=== PATIENT | male | born 1985 | race Caucasian/White ===

== ENCOUNTER 2017-09-22 12:49 | Emergency (ER) | payer OTHER ==
[2017-09-22 12:59] VITALS: BP 118/83
[2017-09-22] MEDS ORDERED: IPRATROPIUM/ALBUTEROL 3 ML NEB INH STA (13:51)
[2017-09-22] MEDS ORDERED: predniSONE 20 MG TABLET PO STA (13:51)
[2017-09-22] MEDS ORDERED: DOXYCYCLINE 100 MG TABLET PO STA (13:51)
--- NOTE | 2017-09-22 13:54 | ED Physician Documentation ---
PD HPI DYSPNEA - Stated complaint Stated Complaint: DIFF BREATHING/COLDS - Chief complaint Chief Complaint: Resp - History obtained from History obtained from: Patient - History of Present Illness Timing - onset: Other (He has a history of asthma, on a normal day he does use his inhaler occasionally and he also uses Qvar 2 puffs twice a day. Over the last couple of days he has had a runny nose and sore throat cough that was initially dry but now is productive of green mucus but without fevers or chills. He has had some myalgias. He has had increased use of his albuterol.) Review of Systems Constitutional: reports: Myalgias. denies: Fever, Chills, Fatigue Ears: denies: Ear pain Nose: denies: Rhinorrhea / runny nose, Congestion Throat: denies: Sore throat Cardiac: denies: Chest pain / pressure, Palpitations Respiratory: reports: Dyspnea, Cough PD PAST MEDICAL HISTORY - Past Medical History Past Medical History: Yes Cardiovascular: Hypertension Respiratory: Asthma, Pneumonia Psych: Depression, Anxiety - Past Surgical History Past Surgical History: No - Present Medications Home Medications: Ambulatory Orders Medication Instructions Recorded Confirmed Albuterol Sulf [Ventolin Hfa 2 puffs PRN 09/22/17 Inhaler] Beclomethasone 80 Mcg [Qvar 80] 2 puffs BID 09/22/17 09/22/17 Doxycycline Hyclate 100 mg PO BID #14 tablet 09/22/17 Fluticasone/Salmeterol [Advair 1 each IH BID #3 blst.w.dev 09/22/17 500-50 Diskus] Metoprolol Tartrate [Lopressor] 25 mg PO BID 09/22/17 09/22/17 predniSONE [Deltasone] 60 mg PO DAILY 5 Days tablet 09/22/17 - Allergies Allergies/Adverse Reactions: Allergies Allergy/AdvReac Type Severity Reaction Status Date / Time No Known Drug Allergies Allergy Verified 09/22/17 12:58 - Social History Does the pt smoke?: No Smoking Status: Never smoker Does the pt drink ETOH?: No Does the pt have substance abuse?: Yes Substance Use and Type: Marijuana - Immunizations Immunizations are current?: Yes - POLST Patient has POLST: No PD ED PE NORMAL - Vitals Vital signs reviewed: Yes - General General: Alert and oriented X 3, No acute distress - HEENT HEENT: PERRL, EOMI, Ears normal, Moist mucous membranes, Pharynx benign - Neck Neck: Supple, no meningeal sign, No bony TTP - Cardiac Cardiac: RRR, No murmur - Respiratory Respiratory: No respiratory distress, Other (Breath sounds are diminished throughout but with relatively good air motion, faint wheezes especially on the right. No rhonchi.) - Abdomen Abdomen: Non tender - Extremities Extremities: No edema, No calf tenderness / cord - Neuro Neuro: Alert and oriented X 3 - Psych Psych: Normal mood, Normal affect Results - Vitals Vitals: Vital Signs - 24 hr 09/22/17 12:56 Temperature 36.4 C L Heart Rate 93 Respiratory 22 Rate Blood Pressure 118/83 H O2 Saturation 96 Oxygen O2 Source Room air PD MEDICAL DECISION MAKING - ED course ED course: 31-year-old gentleman in asthma exacerbation, not in extremis, he is placed on oral antibiotics and steroids given the increase in his symptoms and productive cough with green mucus. [facility] here. Departure - Departure Disposition: 01 Home, Self Care Clinical Impression: Asthma Qualifiers: Asthma severity: moderate Asthma persistence: persistent Asthma complication type: with acute exacerbation Qualified Code(s): J45.41 - Moderate persistent asthma with (acute) exacerbation Condition: Good Record reviewed to determine appropriate education?: Yes Instructions: Asthma Dc Prescriptions: Doxycycline Hyclate 100 mg PO BID #14 tablet Fluticasone/Salmeterol [Advair 500-50 Diskus] 1 each IH BID #3 blst.w.dev predniSONE [Deltasone] 60 mg PO DAILY 5 Days tablet Comments: Follow-up with your doctor, return if worse. Your blood pressure was elevated today on check into the emergency department. This does not mean that you have hypertension, it is a common phenomenon to come to the emergency department and have elevated blood pressure. I recommend that you see your primary care physician within the week to have it rechecked when you are feeling better.
== END 2017-09-22 14:17 | disposition home or self-care (01) ==
LOC: ED 12:49
DX: J45.41 Moderate persistent asthma with (acute) exacerbation (principal); I10 Essential (primary) hypertension
CPT/HCPCS: 94640; 99283; A9270; J7512; J7620